=== PATIENT | female | born 1965 | race Caucasian/White ===

== ENCOUNTER 2016-12-23 14:40 | Emergency (ER) | payer BC ==
[2016-12-23 15:00] VITALS: BP 166/88; BMI 27.8
--- NOTE | 2016-12-23 15:44 | DR.GENAD ---
HPI - PCP Primary Care Physician: NFD - Complaint/Symptoms Chief Complaint:: PT C/O URINARY FREQUENCY AND ABD PAIN. PT STATES THESE SYMPTOMS STARTED X4 DAYS AGO. - Source History Provided: Patient - Mode of Arrival Mode of Arrival: Ambulatory - Timing Onset of Chief Complaint: 12/19/16 PMH - PMH Past Medical History: Yes Past Medical History: Headaches, Hypertension, Kidney Stones Past Medical History Comment: ULCER COLITIS, MITRAL VALVE PROLAPSE Past Surgical History: Yes Surgical History: , Hysterectomy, Lithotripsy - Family History History of Family Medical Conditions: No - Social History Does any household member use tobacco: No Alcohol Use: None Do you use any recreational Drugs:: No Lives With: Family Lives Where: Home - infectious screening In the last 2 months have you had wt loss of >10#?: NO Have you had fever, night sweats or hemotysis?: No Have you traveled outside the country in the last 6 months?: No Isolation: Standard ROS - Review of Systems Constitutional: No Symptoms Reported Eyes: No Symptoms Reported ENTM: No Symptoms Reported Respiratoy: No Symptoms Reported Cardiovascular: No Symptoms Reported Gastrointestinal/Abdominal: No Symptoms Reported Genitourinary: Dysuria Neurological: No Symptoms Reported Musculoskeletal: No Symptoms Reported Integumentary: No Symptoms Reported Hematologic/Lymphatic: No Symptoms Reported Endocrine: No Symptoms Reported Psychiatric: No Symptoms Reported All Other Systems: Reviewed and Negative PE - Vital Signs Vitals: Temperature 97.9 F Pulse Rate 77 Respiratory Rate 20 Blood Pressure 166/88 O2 Sat by Pulse Oximetry 95 - General Limitations: No Limitations General Appearance: Alert, In No Apparent Distress - Head Head Exam: Normal Inspection, Atraumatic - Eyes Eye exam: Normal Appearance, PERRL, EOMI - ENT ENT Exam: Normal Exam External Ear Exam: Normal External Inspection TM/Canal Exam: Bilateral Normal Nose Exam: Normal Nose Exam Mouth Exam: Normal Inspection Throat Exam: Normal Inspection - Neck Neck Exam: Normal Inspection - Chest Chest Inspection: Normal Inspection - Respiratory Respiratory Exam: Normal Lung Sounds Bilat Respiratory Exam: Bilateral Clear to Auscultation - Cardiovascular Cardiovascular Exam: Regular Rate, Normal Rhythm - Abdominal Exam Abdominal Exam: Normal Inspection, Normal Bowel Sounds, Soft, Tenderness Abdominal Tenderness: Suprapubic - Extremities Extremities Exam: Normal Inspection, Full ROM - Back Back Exam: Normal Inspection, Full ROM - Neurologic Neurological Exam: Alert, Oriented X3, CN II-XII Intact - Psychiatric Psychiatric Exam: Normal Affect - Skin Skin Exam: Warm, Dry, Intact ROR - Labs Reviewed Result Diagrams: 12/23/16 15:50 12/23/16 15:50 Laboratory: WBC 11.3 X10^3/uL (3.6-10.0) H 12/23/16 15:50 RBC 4.13 X10^6/uL (3.5-5.4) 12/23/16 15:50 Hgb 13.4 g/dL (12.0-16.0) 12/23/16 15:50 Hct 38.8 % (36.0-47.0) 12/23/16 15:50 MCV 93.9 fL (80.0-100.0) 12/23/16 15:50 MCH 32.4 pg (27.0-34.0) 12/23/16 15:50 MCHC 34.6 g/dL (33.0-35.0) 12/23/16 15:50 RDW 12.7 % (11.6-16.5) 12/23/16 15:50 Plt Count 299 X10^3/uL (150.0-450.0) 12/23/16 15:50 MPV 8.3 fL (7.4-11.0) 12/23/16 15:50 Neut % 71.0 % (42.0-75.0) 12/23/16 15:50 Lymph % 21.6 % (21.0-51.0) 12/23/16 15:50 [place] % 6.1 % (0.0-13.0) 12/23/16 15:50 Eos % 0.9 % (0.9-2.9) 12/23/16 15:50 Baso % 0.4 % (0.2-1.0) 12/23/16 15:50 Neut # 8.0 x10^3/uL (2.2-4.8) H 12/23/16 15:50 Lymph # 2.4 X10^3/uL (1.3-2.9) 12/23/16 15:50 [place] # 0.7 x10^3/uL (0.3-0.8) 12/23/16 15:50 Eos # 0.1 x10^3/uL (0.0-0.2) 12/23/16 15:50 Baso # 0.0 X10^3/uL (0.0-0.1) 12/23/16 15:50 Absolute Nucleated RBC 0.1 /100WBC 12/23/16 15:50 Sodium 142 mmol/L (136-145) 12/23/16 15:50 Corrected Sodium TNP 12/23/16 15:50 Potassium 3.8 mmol/L (3.5-5.1) 12/23/16 15:50 Chloride 103 mmol/L (98-107) 12/23/16 15:50 Carbon Dioxide 29.8 mmol/L (21-32) 12/23/16 15:50 BUN 9 mg/dL (7-18) 12/23/16 15:50 Creatinine 0.77 mg/dL (0.55-1.02) 12/23/16 15:50 Est GFR (MDRD) Af Amer > 60 (>60) 12/23/16 15:50 Est GFR (MDRD) Non-Af > 60 (>60) 12/23/16 15:50 Glucose 90 mg/dL (65-99) 12/23/16 15:50 Calcium 9.4 mg/dL (8.5-10.1) 12/23/16 15:50 Corrected Calcium TNP 12/23/16 15:50 Total Bilirubin 0.40 mg/dL (0.2-1.0) 12/23/16 15:50 AST 27 Units/L (15-37) 12/23/16 15:50 ALT 37 Units/L (12-78) 12/23/16 15:50 Alkaline Phosphatase 119 Units/L (46-116) H 12/23/16 15:50 C-Reactive Protein 15.00 mg/L (0-3.0) H 12/23/16 15:50 Total Protein 8.1 g/dL (6.4-8.2) 12/23/16 15:50 Albumin 4.0 g/dL (3.4-5.0) 12/23/16 15:50 Globulin 4.1 g/dL (2.5-4.5) 12/23/16 15:50 Albumin/Globulin Ratio 1.0 Ratio (1.1-2.1) L 12/23/16 15:50 Amylase 29 Units/L (25-115) 12/23/16 15:50 Lipase 125 Units/L (73-393) 12/23/16 15:50 Specimen Type Clean catch urine 12/23/16 15:38 Urine Color Yellow (YELLOW) 12/23/16 15:38 Urine Appearance Cloudy (CLEAR) 12/23/16 15:38 Urine pH 8.0 (5.0 - 8.0) 12/23/16 15:38 Ur Specific [place] 1.010 (1.000-1.030) 12/23/16 15:38 Urine Protein 3+ (NEGATIVE) 12/23/16 15:38 Urine Glucose (UA) Negative (NEGATIVE) 12/23/16 15:38 Urine Ketones Negative (NEGATIVE) 12/23/16 15:38 Urine Occult Blood 3+ (NEGATIVE) 12/23/16 15:38 Urine Nitrite Negative (NEGATIVE) 12/23/16 15:38 Urine Bilirubin Negative (NEGATIVE) 12/23/16 15:38 Urine Urobilinogen Normal (NORMAL) 12/23/16 15:38 Ur Leukocyte Esterase 3+ (NEGATIVE) 12/23/16 15:38 Urine RBC 10-15 /HPF (NEGATIVE) 12/23/16 15:38 Urine WBC Tntc /HPF (NEGATIVE) 12/23/16 15:38 Ur Squamous Epith Cells Moderate /HPF (NEGATIVE) 12/23/16 15:38 Urine Bacteria 1+ /HPF (NEGATIVE) 12/23/16 15:38 Ur Culture Indicated? Yes/culture set up 12/23/16 15:38 H. pylori IgG Antibody Negative (NEGATIVE) 12/23/16 15:50 - XRAY XRAY Interpreted by: Radiologist (CT Abd/Pelv: There is a 3mm calculus in the lower pole of the left kidney. There is no hydronephrosis. The right kidney shows a tiny punctate calculus in the lower pole. No evidence of hydronephrosis. ) - Diagnosis Discharge Problem: Renal calculus, bilateral UTI (urinary tract infection) Qualifiers: Urinary tract infection type: acute cystitis Hematuria presence: with hematuria Qualified Code(s): N30.01 - Acute cystitis with hematuria - Discharge Plan Condition: Stable - Follow ups/Referrals Follow ups/Referrals: NFD,None [Primary Care Provider] - 3 days - Instructions
[2016-12-23] MEDS ORDERED: MORPHINE SULFATE INJ 4 MG IVP ONE (15:52)
[2016-12-23] MEDS ORDERED: NS 1000 ML 1,000 ML ONE (15:55)
[2016-12-23] MEDS ORDERED: MORPHINE SULFATE INJ 4 MG ONE (15:56)
[2016-12-23] MEDS ORDERED: NS 1000 ML 1,000 ML IV SCH (16:00)
[2016-12-23 16:09] LABS: BILIRUBIN,URINE NEGATIVE (NEGATIVE); BLOOD/HEMOGLOBIN,URINE 3+ (NEGATIVE); GLUCOSE, URINE NEGATIVE (NEGATIVE); KETONES,URINE NEGATIVE (NEGATIVE); LEUKOCYTE ESTERASE ,URINE 3+ (NEGATIVE); NITRITES,URINE NEGATIVE (NEGATIVE); PROTEIN,URINE 3+ (NEGATIVE); UROBILINOGEN,URINE NORMAL (NORMAL)
[2016-12-23 16:14] LABS: AMYLASE 29 Units/L (25-115); LIPASE 125 Units/L (73-393)
[2016-12-23 16:15] LABS: APPEARANCE,URINE CLOUDY (CLEAR); BACTERIA,URINE 1+ /HPF (NEGATIVE); COLOR,URINE YELLOW (YELLOW); SQUAMOUS EPITHELIAL CELL,UR MODERATE /HPF (NEGATIVE)
[2016-12-23 16:18] LABS: BASOPHILS % (AUTO) 0.4 % (0.2-1.0); EOSINOPHILS # (AUTO) 0.1 x10^3/uL (0.0-0.2); EOSINOPHILS % (AUTO) 0.9 % (0.9-2.9); HEMATOCRIT 38.8 % (36.0-47.0); HEMOGLOBIN 13.4 g/dL (12.0-16.0); LYMPHOCYTES # (AUTO) 2.4 X10^3/uL (1.3-2.9); LYMPHOCYTES % (AUTO) 21.6 % (21.0-51.0); MEAN CORPUSCULAR HEMOGLOBIN 32.4 pg (27.0-34.0); MEAN CORPUSCULAR HGB CONC 34.6 g/dL (33.0-35.0); MEAN CORPUSCULAR VOLUME 93.9 fL (80.0-100.0); MEAN PLATELET VOLUME 8.3 fL (7.4-11.0); MONOCYTES # (AUTO) 0.7 x10^3/uL (0.3-0.8); MONOCYTES % (AUTO) 6.1 % (0.0-13.0); PLATELET COUNT 299 X10^3/uL (150.0-450.0); RED BLOOD COUNT 4.13 X10^6/uL (3.5-5.4); RED CELL DISTRIBUTION WIDTH 12.7 % (11.6-16.5); WHITE BLOOD COUNT 11.3 X10^3/uL (3.6-10.0)
[2016-12-23 16:19] LABS: ALANINE AMINOTRANSFERASE 37 Units/L (12-78); ALKALINE PHOSPHATASE 119 Units/L (46-116); ASPARTATE AMINO TRANSFERASE 27 Units/L (15-37); BLOOD UREA NITROGEN 9 mg/dL (7-18); CALCIUM 9.4 mg/dL (8.5-10.1); CARBON DIOXIDE 29.8 mmol/L (21-32); CHLORIDE 103 mmol/L (98-107); CREATININE 0.77 mg/dL (0.55-1.02); GLUCOSE 90 mg/dL (65-99); SODIUM 142 mmol/L (136-145); TOTAL PROTEIN 8.1 g/dL (6.4-8.2); eGFR BLACK RACES > 60 (>60); eGFR NON BLACK RACES > 60 (>60)
--- NOTE | 2016-12-23 17:37 | CT ---
HISTORY: Left flank pain and hematuria Study: CT abdomen and pelvis without contrast Comparison: May 2015 Technique: Multiple axial images of the abdomen and pelvis were obtained from the lung bases to the pubic symph ysis without the administration of IV contrast. Sagittal and coronal reformations were provided. Findings: The visualized portions of the lung bases are unremarkable. There is a 3 millimeter calculus in the lower pole of the left kidney. There is no hydronephrosis. The right kidney shows a tiny punctate c alculus in the lower pole. The liver and spleen and pancreas and adrenal glands are unremarkable.. T he gallbladder is unremarkable in its CT appearance. No significant mesenteric lymphadenopathy or s tranding can be observed. No free fluid or free air is seen within the abdomen. The uterus is surg ically absent. I cannot identify the appendix with certainty. There is no abnormal adnexal mass. No bowel wall thickening or bowel dilatation is present. The colon is unremarkable. Specifically, the re is no diverticulosis noted within the sigmoid colon. The urinary bladder is grossly unremarkable. The bony structures are grossly intact. IMPRESSION: 1. Bilateral lower pole renal calculi, no evidence for hydronephrosis. Reported By:
== END 2016-12-23 18:15 | disposition home or self-care (01) ==
LOC: ER 15:06
DX: N20.0 Calculus of kidney (principal); N30.01 Acute cystitis with hematuria; B96.29 Other Escherichia coli [E. coli] as the cause of diseases classified elsewhere; R10.84 Generalized abdominal pain
CPT/HCPCS: 36415; 74176; 80053; 81001; 82150; 83690; 85025; 86140; 86677; 87086; 87088; 87186; 96365; 96367; 96374; 99283; A4222; J2270

== ENCOUNTER 2025-04-05 22:04 | Observation (INO) ==
[2025-04-05 23:26] LABS: BLOOD/HEMOGLOBIN,URINE NEGATIVE (NEGATIVE); LEUKOCYTE ESTERASE ,URINE 3+ (NEGATIVE); NITRITES,URINE NEGATIVE (NEGATIVE)
[2025-04-05 23:32] LABS: APPEARANCE,URINE CLEAR (CLEAR)
[2025-04-05 23:33] LABS: SQUAMOUS EPITHELIAL CELL,UR FEW /HPF (NEGATIVE)
--- NOTE | 2025-04-05 23:58 | CT ---
EXAM: ABDOMEN/PELVIS W/O CON HISTORY: abdominal pain; Pt states that she has had cough and congestion since last Monday. Pt states that when she coughs she gets short of breath. Pt states that the cough is non-productive and is painful COMPARISON: None. TECHNIQUE: CT of the abdomen and pelvis without contrast FINDINGS: The lung bases are clear. The abdominal aorta tapers normally. Sensitivity is reduced without intravenous contrast. Small pericardial effusion is visible. No liver mass. Clips from prior cholecystectomy. Normal adrenal glands. Normal right kidney. Right ureter tapers normally. Left nephrolithiasis spanning 3 mm. The left ureter tapers normally. Normal spleen. The pancreas is noninflamed. The stomach is not obstructed. No pelvic free fluid. Small fatty umbilical hernia. No free air. Distended colon loops involving the ascending and transverse colon. No sign of appendicitis. No pelvic free fluid. The small bowel is not obstructed. No free air. Degenerative changes of the spine. IMPRESSION: Colonic ileus versus partial colonic obstruction. No sign of abscess or perforation. Nonobstructing left nephrolithiasis. All CT scans at this facility use dose modulation, iterative reconstruction, and/or weight based dosing when appropriate to reduce radiation dose to as low as reasonably achievable. THIS IS AN ELECTRONICALLY VERIFIED FINAL REPORT 04/05/2025 11:55 PM - Electronically signed by Devaughn Garcia MD
--- NOTE | 2025-04-06 00:09 | ED.ABDFE ---
HPI Time Seen Time Seen by Provider: 04/06/25 00:07 PCP Primary Care Physician: HPI Comment HPI Comment: abdominal pain started by not feeling well 4 days ago .it began with nausea and vomiting followed by crampy abdominal pain moderate intensity associated with non- bloody watery diarrhea. Symptoms worsened. Here to have it checked. Took tums and gas-x did not help. No one at home with similar symptoms. Not eaten anything unusual or different. Has not been eating and drinking since then symptoms began. No recent changes in medication Complaint Doctors Chief Complaint Comments: abdominal pain Chief Complaint:: pt ambulatory to the er she stated she has been sick since . she stated on monday she started running temp and today she has been feeling weak and having some upper left abdominal pain, diarrhea, nausea and vomiting. Self Treatment fo Chief Complaint: tums and gas pills about three hours ago. COVID-19 Coronavirus risk:travel/contact w/high risk person: No Has patient experienced Coronavirus symptoms: Yes Coronavirus symptoms experienced: Fever Reviewed Nurses Notes Review: Yes Source History Provided: Patient Mode of arrival Mode of Arrival: Ambulatory Timing Onset of Chief Complaint: 04/03/25 PMH PMH Past Medical History: Yes Past Medical History: Migraines, Hypertension and Kidney Stones Past Surgical History: Yes Surgical History: , Cholecystectomy, Hysterectomy, Lithotripsy and Other Family History History of Family Medical Conditions: Yes Family Medical History: Hypertension Social History Do you use any recreational Drugs:: No Travel Risk Coronavirus risk:travel/contact w/high risk person: No Has patient experienced Coronavirus symptoms: Yes Coronavirus symptoms experienced: Fever Infectious screening Have you traveled outside the country in the last 6 months?: No Isolation: Standard ROS Review of Systems Constitutional: Fever, Malaise and Loss of Appetite Eyes: No Symptoms Reported ENTM: No Symptoms Reported Respiratoy: No Symptoms Reported Cardiovascular: No Symptoms Reported Gastrointestinal/Abdominal: Abdominal Pain, Diarrhea, Nausea and Vomiting Genitourinary: No Symptoms Reported Neurological: No Symptoms Reported Musculoskeletal: No Symptoms Reported Integumentary: No Symptoms Reported Hematologic/Lymphatic: No Symptoms Reported Endocrine: No Symptoms Reported Psychiatric: No Symptoms Reported PE Vital Signs Vitals: Vital Signs Temperature 98.0 F Temperature 98.0 F Pulse Rate [Right Radial] 87 Pulse Rate 86 Respiratory Rate 18 Respiratory Rate 20 Blood Pressure [Left Arm] 125/66 Blood Pressure 177/84 O2 Sat by Pulse Oximetry 98 O2 Sat by Pulse Oximetry 96 General Limitations: No Limitations General Appearance: Alert, Anxious and In Distress Head Head Exam: Normal Inspection, Atraumatic and Normocephalic Eyes Eye exam: Normal Appearance, PERRL and EOMI ENT ENT Exam: Mucous Membranes Dry Neck Neck Exam: Normal Inspection, Full ROM and Trachea Midline Chest Chest Inspection: Normal Inspection and Symmetric Chest Wall Rise Respiratory Respiratory Exam: Normal Lung Sounds Bilat Respiratory Exam: Bilateral: Clear to Auscultation Cardiovascular Cardiovascular Exam: +S1 and +S2 Abdominal Exam Abdominal Exam: Normal Inspection, Tenderness and Hypoactive Bowel Sounds Abdominal Tenderness: LUQ, LLQ and Moderate Back Back Exam: Normal Inspection Extremeties Extremities Exam: Normal Inspection Neurologic Neurological Exam: Alert, CN II-XII Intact, Normal Gait and Reflexes Normal Skin Skin Exam: Normal Color MDM Differential Diagnosis Differential Diagnosis- Considerations may include:: Constipation Other differential diagnosis: abdominal pin ileus ,bowel obstruction gastroneteritis COURSE Treatment Treatment: labs ,ct abdomen/plevis IV fluids ROR Labs Reviewed Laboratory Results Reviewed?: Yes 04/06/25 00:24 04/06/25 00:24 Laboratory: WBC 10.7 X10^3/uL (3.6-10.0) H 04/06/25 00:24 RBC 4.38 X10^6/uL (3.5-5.4) 04/06/25 00:24 Hgb 13.3 g/dL (12.0-16.0) 04/06/25 00:24 Hct 39.1 % (36.0-47.0) 04/06/25 00:24 MCV 89.2 fL (80.0-100.0) 04/06/25 00:24 MCH 30.4 pg (27.0-34.0) 04/06/25 00:24 MCHC 34.0 g/dL (33.0-35.0) 04/06/25 00:24 RDW 14.1 % (11.6-16.5) 04/06/25 00:24 Plt Count 342 X10^3/uL (150.0-450.0) 04/06/25 00:24 MPV 8.7 fL (7.4-11.0) 04/06/25 00:24 Neut % (Auto) 75.8 % (42.0-75.0) H 04/06/25 00:24 Lymph % (Auto) 16.0 % (21.0-51.0) L 04/06/25 00:24 [place] % (Auto) 6.7 % (0.0-13.0) 04/06/25 00:24 Eos % (Auto) 1.3 % (0.9-2.9) 04/06/25 00:24 Baso % (Auto) 0.2 % (0.2-1.0) 04/06/25 00:24 Neut # (Auto) 8.1 x10^3/uL (2.2-4.8) H 04/06/25 00:24 Lymph # (Auto) 1.7 X10^3/uL (1.3-2.9) 04/06/25 00:24 [place] # (Auto) 0.7 x10^3/uL (0.3-0.8) 04/06/25 00:24 Eos # (Auto) 0.1 x10^3/uL (0.0-0.2) 04/06/25 00:24 Baso # (Auto) 0.0 X10^3/uL (0.0-0.1) 04/06/25 00:24 Absolute Nucleated RBC 0.1 /100WBC 04/06/25 00:24 Sodium 142 mmol/L (136-145) 04/06/25 00:24 Corrected Sodium TNP 04/06/25 00:24 Potassium 3.2 mmol/L (3.5-5.1) L 04/06/25 00:24 Chloride 104 mmol/L (98-107) 04/06/25 00:24 Carbon Dioxide 27.4 mmol/L (21-32) 04/06/25 00:24 BUN 10 mg/dL (7-18) 04/06/25 00:24 Creatinine 0.77 mg/dL (0.55-1.02) 04/06/25 00:24 Est GFR (MDRD) Af Amer > 60 (>60) 04/06/25 00:24 Est GFR (MDRD) Non-Af > 60 (>60) 04/06/25 00:24 Glucose 98 mg/dL (65-99) 04/06/25 00:24 Lactic Acid 0.8 mmol/L (0.4-2.0) 04/06/25 00:24 Calcium 9.2 mg/dL (8.5-10.1) 04/06/25 00:24 Corrected Calcium TNP 04/06/25 00:24 Total Bilirubin 0.30 mg/dL (0.2-1.0) 04/06/25 00:24 AST 54 Units/L (15-37) H 04/06/25 00:24 ALT 77 Units/L (12-78) 04/06/25 00:24 Alkaline Phosphatase 187 Units/L (46-116) H 04/06/25 00:24 Total Protein 8.4 g/dL (6.4-8.2) H 04/06/25 00:24 Albumin 4.1 g/dL (3.4-5.0) 04/06/25 00:24 Globulin 4.3 g/dL (2.5-4.5) 04/06/25 00:24 Albumin/Globulin Ratio 1.0 Ratio (1.1-2.1) L 04/06/25 00:24 Lipase 29 Units/L (16-77) 04/06/25 00:24 Specimen Type Clean catch urine 04/05/25 23:12 Urine Color Pale yellow (YELLOW) 04/05/25 23:12 Urine Appearance Clear (CLEAR) 04/05/25 23:12 Urine pH 7.0 (5.0 - 8.0) 04/05/25 23:12 Ur Specific [place] 1.010 (1.000-1.030) 04/05/25 23:12 Urine Protein 1+ (NEGATIVE) 04/05/25 23:12 Urine Glucose (UA) Negative (NEGATIVE) 04/05/25 23:12 Urine Ketones Negative (NEGATIVE) 04/05/25 23:12 Urine Blood Negative (NEGATIVE) 04/05/25 23:12 Urine Nitrite Negative (NEGATIVE) 04/05/25 23:12 Urine Bilirubin Negative (NEGATIVE) 04/05/25 23:12 Urine Urobilinogen Normal (NORMAL) 04/05/25 23:12 Ur Leukocyte Esterase 3+ (NEGATIVE) 04/05/25 23:12 Urine RBC None seen /HPF (0-3) 04/05/25 23:12 Urine WBC 5-10 /HPF (0-5) A 04/05/25 23:12 Ur Squamous Epith Cells Few /HPF (NEGATIVE) 04/05/25 23:12 Urine Bacteria Negative /HPF (NEGATIVE) 04/05/25 23:12 Ur Culture Indicated? No/not indicated 04/05/25 23:12 SARS-CoV-2 (PCR) Negative (NEGATIVE) 04/05/25 23:47 Influenza Type A (PCR) Negative (NEGATIVE) 04/05/25 23:47 Influenza Type B (PCR) Negative (NEGATIVE) 04/05/25 23:47 RSV (PCR) Negative (NEGATIVE) 04/05/25 23:47 Opioid Opioid Risk Tool Age (Charanjit box if 16-45): No History of Preadolescent Sexual Abuse: No Total: 0 Total Score Risk Category: Low Risk Copyright: Espinoza PAZ predicting aberrant behaviors Discharge Plan Diagnosis Discharge Problem: Partial obstruction of colon, Leukocytosis, Hypokalemia Discharge Plan Patient Disposition: 09 ADMITTED INPATIENT Condition: Stable Prescriptions: No Action prednisolone sodium phosphate 15 mg/5 mL (3 mg/mL) solution PO metoprolol succinate 200 mg tablet extended release 24 hr 200 mg PO QDAY nifedipine 60 mg tablet extended release 24hr 60 mg PO QDAY paroxetine HCl 20 mg tablet 20 mg PO QDAY montelukast 10 mg tablet 10 mg PO QDAY [id number] 2-30-10 mg/5 mL syrup PO olmesartan 40 mg tablet 40 mg PO QDAY ezetimibe 10 mg tablet 10 mg PO QDAY bupropion HCl 300 mg tablet extended release 24 hr 300 mg PO QDAY pregabalin 100 mg capsule 100 mg PO TID lubiprostone 24 mcg capsule 24 mcg PO BID Repatha SureClick 140 mg/mL pen injector 140 mg SUBCUT Q2W Patient Comments: [NO ORIGINAL SIG] Nurtec ODT 75 mg tablet,disintegrating 75 mg PO DAILY PRN Qulipta 60 mg tablet 60 mg PO QDAY Zepbound 12.5 mg/0.5 mL pen injector 12.5 mg SUBCUT QWEEK Patient Comments: [NO ORIGINAL SIG] Health Concerns: Post Hospitalization: new medications and changes needed to prevent readmission or further decline. Pt educated and given instructions on all concerns. Plan of Treatment: Continue with present treatment and follow up plan. Pt is to keep follow up appointment as instructed and take medications as ordered. Orders to Discharge Patient Discharge Orders: Transfer (Routine); Ordered 04/06/25 Ordered By: Avery Schafer Follow ups/Referrals Follow ups/Referrals: NFD,None [Primary Care Provider] - 3 days Instructions Stand Alone Forms: Find Help Web Site, Post Hospital Follow Up Care Print Language: GIBR[place] Provider Note Additional Notes patient labs ct scan discussed with Dr Grant .Pt has colonic ileus v partial colonic obstruction .Agreed to admit patient for IV fluids ,NPO and antibiotics
[2025-04-06 00:58] LABS: MEAN PLATELET VOLUME 8.7 fL (7.4-11.0); RED CELL DISTRIBUTION WIDTH 14.1 % (11.6-16.5)
[2025-04-06] MEDS: NS 1,000 ML IV 1,000 ML IV ONE (01:13)
[2025-04-06] MEDS: OFIRMEV IV 1000 MG VIAL 1,000 MG/100 ML VIAL IV ONE (01:28)
[2025-04-06 01:31] LABS: CREATININE 0.77 mg/dL (0.55-1.02); eGFR NON BLACK RACES > 60 (>60)
[2025-04-06] MEDS ORDERED: ZOSYN VIAL 3.375 GRAMS 3.375 G in NS 100 ML IV 100 ML IV SCH (02:25)
[2025-04-06 02:48] VITALS: BMI 30.7
[2025-04-06] MEDS: K-DUR TAB 20 MEQ PO SCH (03:05)
[2025-04-06] MEDS: NS 1,000 ML IV 1,000 ML IV SCH (03:13)
[2025-04-06] MEDS: ZOSYN VIAL 3.375 GRAMS 3.375 G in NS 100 ML IV 100 ML IV SCH (03:14)
[2025-04-06] MEDS: K-RIDER 10 MEQ/100 ML WATER 10 MEQ/100 ML BAG IV SCH (03:42)
[2025-04-06] MEDS: MORPHINE SULFATE INJ 2 MG INJ IVP PRN (03:43)
[2025-04-06] MEDS: NS 250 ML IV 25 ML IV PRN (03:43)
[2025-04-06 05:43] LABS: MEAN PLATELET VOLUME 8.3 fL (7.4-11.0); RED CELL DISTRIBUTION WIDTH 14.1 % (11.6-16.5)
[2025-04-06 05:58] LABS: CREATININE 0.68 mg/dL (0.55-1.02); eGFR NON BLACK RACES > 60 (>60)
[2025-04-06] MEDS ORDERED: CONSULT PHARMACY - POTASSIUM & MAGNESIUM XX SCH (08:00)
[2025-04-06] MEDS: WELLBUTRIN XL 300 MG (DAILY) PO SCH (10:09)
[2025-04-06] MEDS: BENICAR PO SCH (10:09)
[2025-04-06] MEDS: TOPROL XL PO SCH (10:11)
[2025-04-06] MEDS: PAXIL PO SCH (10:12)
[2025-04-06] MEDS: TOPROL XL PO ONE (11:03)
--- NOTE | 2025-04-07 00:08 | DR.H&P ---
H&P History & Physical for Day of: H&P Date: 04/06/25 Chief Complaint Chief Complaint: Abdominal pain and watery diarrhea History of Present Illness History of Present Illness: 60-year-old female with 4-day history of abdominal pain which has gotten worse with nonbloody watery diarrhea. Evaluated in the emergency room and CT scan consistent with possible colonic ileus versus obstruction of the descending colon. Overall colon was not specifically or significantly dilated. Since admission patient is already feeling better. Past Medical History Past Medical History: Anxiety, Dyslipidemia, Migraines, Hypertension and Kidney Stones Additional Medical History: Chronic constipation Past Surgical History Surgical History: , Cholecystectomy, Hysterectomy, Ortho Surgery and Lithotripsy Family History Family Medical History: Coronary Artery Disease and Hypertension Social History Does patient currently use any type of tobacco product: No Type of Tobacco Use: None Does any household member use tobacco: No Alcohol Use: None Drug Use: None Medications Home Medications: Home Medications Medication Instructions Recorded Confirmed Type atogepant 60 mg tablet (Qulipta) 60 mg PO QDAY 5 04/06/25 History bupropion HCl 300 mg 24 hr tablet, 300 mg PO QDAY 03/0904/06/25 History extended release evolocumab 140 mg/mL subcutaneous 140 mg subcut Q2W 04/06/25 History pen injector (Jb Stevens) ezetimibe 10 mg tablet 10 mg PO QDAY 04/06/2504/06 History lubiprostone 24 mcg capsule 24 mcg PO BID 04/06/25 History metoprolol succinate 200 mg 200 mg PO QDAY 04/06/25 History tablet,extended release 24 hr montelukast 10 mg tablet 10 mg PO QDAY 04/06/2504/06 History nifedipine 60 mg tablet,extended 60 mg PO QDAY 04/06/25 History release 24 hr olmesartan 40 mg tablet 40 mg PO QDAY 04/06/2504/06 History paroxetine HCl 20 mg tablet 20 mg PO QDAY 04/06/25 History pregabalin 100 mg capsule 100 mg PO TID 04/06/2504/06 History rimegepant 75 mg disintegrating 75 mg PO DAILY PRN 04/06/25 History tablet (Nurtec ODT) tirzepatide (weight loss) 12.5 12.5 mg subcut QWEEK 04/06/25 History mg/0.5 mL subcutaneous pen injector (Zepbound) Allergies Allergies Allergy/AdvReac Type Severity Reaction Status Date / Time No Known Drug Allergies Allergy Verified 06/21/23 13:56 Labs 04/06/25 05:21 04/06/25 05:21 Labs: Laboratory WBC 5.8 X10^3/uL (3.6-10.0) 04/06/25 05:21 RBC 4.13 X10^6/uL (3.5-5.4) 04/06/25 05:21 Hgb 12.5 g/dL (12.0-16.0) 04/06/25 05:21 Hct 36.6 % (36.0-47.0) 04/06/25 05:21 MCV 88.6 fL (80.0-100.0) 04/06/25 05:21 MCH 30.3 pg (27.0-34.0) 04/06/25 05:21 MCHC 34.2 g/dL (33.0-35.0) 04/06/25 05:21 RDW 14.1 % (11.6-16.5) 04/06/25 05:21 Plt Count 294 X10^3/uL (150.0-450.0) 04/06/25 05:21 MPV 8.3 fL (7.4-11.0) 04/06/25 05:21 Neut % (Auto) 58.1 % (42.0-75.0) 04/06/25 05:21 Lymph % (Auto) 29.3 % (21.0-51.0) 04/06/25 05:21 [place] % (Auto) 10.7 % (0.0-13.0) 04/06/25 05:21 Eos % (Auto) 1.6 % (0.9-2.9) 04/06/25 05:21 Baso % (Auto) 0.3 % (0.2-1.0) 04/06/25 05:21 Neut # (Auto) 3.4 x10^3/uL (2.2-4.8) 04/06/25 05:21 Lymph # (Auto) 1.7 X10^3/uL (1.3-2.9) 04/06/25 05:21 [place] # (Auto) 0.6 x10^3/uL (0.3-0.8) 04/06/25 05:21 Eos # (Auto) 0.1 x10^3/uL (0.0-0.2) 04/06/25 05:21 Baso # (Auto) 0.0 X10^3/uL (0.0-0.1) 04/06/25 05:21 Absolute Nucleated RBC 0.2 /100WBC 04/06/25 05:21 Sodium 143 mmol/L (136-145) 04/06/25 05:21 Corrected Sodium TNP 04/06/25 05:21 Potassium 3.4 mmol/L (3.5-5.1) L 04/06/25 05:21 Chloride 107 mmol/L (98-107) 04/06/25 05:21 Carbon Dioxide 25.0 mmol/L (21-32) 04/06/25 05:21 BUN 7 mg/dL (7-18) 04/06/25 05:21 Creatinine 0.68 mg/dL (0.55-1.02) 04/06/25 05:21 Est GFR (MDRD) Af Amer > 60 (>60) 04/06/25 05:21 Est GFR (MDRD) Non-Af > 60 (>60) 04/06/25 05:21 Glucose 89 mg/dL (65-99) 04/06/25 05:21 Lactic Acid 0.8 mmol/L (0.4-2.0) 04/06/25 00:24 Calcium 8.4 mg/dL (8.5-10.1) L 04/06/25 05:21 Corrected Calcium TNP 04/06/25 05:21 Magnesium 2.1 mg/dL (2.0-2.9) 04/06/25 05:21 Total Bilirubin 0.40 mg/dL (0.2-1.0) 04/06/25 05:21 AST 143 Units/L (15-37) H 04/06/25 05:21 ALT 110 Units/L (12-78) H 04/06/25 05:21 Alkaline Phosphatase 287 Units/L (46-116) H 04/06/25 05:21 Total Protein 7.4 g/dL (6.4-8.2) 04/06/25 05:21 Albumin 3.7 g/dL (3.4-5.0) 04/06/25 05:21 Globulin 3.7 g/dL (2.5-4.5) 04/06/25 05:21 Albumin/Globulin Ratio 1.0 Ratio (1.1-2.1) L 04/06/25 05:21 Lipase 29 Units/L (16-77) 04/06/25 00:24 Specimen Type Clean catch urine 04/05/25 23:12 Urine Color Pale yellow (YELLOW) 04/05/25 23:12 Urine Appearance Clear (CLEAR) 04/05/25 23:12 Urine pH 7.0 (5.0 - 8.0) 04/05/25 23:12 Ur Specific [place] 1.010 (1.000-1.030) 04/05/25 23:12 Urine Protein 1+ (NEGATIVE) 04/05/25 23:12 Urine Glucose (UA) Negative (NEGATIVE) 04/05/25 23:12 Urine Ketones Negative (NEGATIVE) 04/05/25 23:12 Urine Blood Negative (NEGATIVE) 04/05/25 23:12 Urine Nitrite Negative (NEGATIVE) 04/05/25 23:12 Urine Bilirubin Negative (NEGATIVE) 04/05/25 23:12 Urine Urobilinogen Normal (NORMAL) 04/05/25 23:12 Ur Leukocyte Esterase 3+ (NEGATIVE) 04/05/25 23:12 Urine RBC None seen /HPF (0-3) 04/05/25 23:12 Urine WBC 5-10 /HPF (0-5) A 04/05/25 23:12 Ur Squamous Epith Cells Few /HPF (NEGATIVE) 04/05/25 23:12 Urine Bacteria Negative /HPF (NEGATIVE) 04/05/25 23:12 Ur Culture Indicated? No/not indicated 04/05/25 23:12 SARS-CoV-2 (PCR) Negative (NEGATIVE) 04/05/25 23:47 Influenza Type A (PCR) Negative (NEGATIVE) 04/05/25 23:47 Influenza Type B (PCR) Negative (NEGATIVE) 04/05/25 23:47 RSV (PCR) Negative (NEGATIVE) 04/05/25 23:47 Review of Systems Constitutional: See HPI Eyes: No Symptoms Reported ENT: No Symptoms Reported Respiratory: No Symptoms Reported Cardiovascular: No Symptoms Reported Gastrointestinal: See HPI Genitourinary: See HPI Musculoskeletal: No Symptoms Reported Skin: No Symptoms Reported Neurological: No Symptoms Reported Physical Exam Vital Signs: Vital Signs Temperature 97.8 F Pulse Rate [Right Radial] 79 Respiratory Rate 18 Blood Pressure [Right Arm] 141/85 O2 Sat by Pulse Oximetry 98 Oriented: Normal, Time, Person and Place Eyes: Normal Ear: Normal Nose: Normal Throat: Normal Respiratory: Clear Throughout Cardiovascular: Normal : Normal Auscultation: Bowel Sounds: Normal Palpation: Other (Mildly tender in left lower quadrant no distention) Tenderness: LLQ (Mild, no rebound) Skin: Normal Musculoskeletal: Normal Psychiatric: Normal Mood Description: Calm Affect: Normal Speech Pattern: Clear and Appropriate Assessment/Plan (1) Partial obstruction of colon: Status: Acute Plan: Doubt this represents obstruction based on the history, physical exam and CT scan findings once actually read the CT scan. Will begin included with diet and observe. (2) Migraine without status migrainosus: Qualifiers: Intractability: intractable Migraine type: migraine (< 15 days per month) without aura Qualified Code(s): G43.019 - Migraine without aura, intractable, without status migrainosus Status: Acute Plan: Home medications (3) Hypertension: Status: Acute Plan: Home medications (4) Anxiety: Status: Acute (5) Chronic constipation: Status: Acute Plan: Home medications Review H&P Reviewed: Yes Patient was examined?: Yes
[2025-04-07 05:28] LABS: MEAN PLATELET VOLUME 8.1 fL (7.4-11.0); RED CELL DISTRIBUTION WIDTH 14.1 % (11.6-16.5)
[2025-04-07 05:37] LABS: COR CA(FOR HYPOALB) 8.5 mg/dL (8.5-10.1); CREATININE 0.61 mg/dL (0.55-1.02); eGFR NON BLACK RACES > 60 (>60)
[2025-04-07] MEDS ORDERED: CONSULT PHARMACY - POTASSIUM & MAGNESIUM XX SCH (06:00)
[2025-04-07] MEDS ORDERED: TOPROL XL PO ONE (08:12)
[2025-04-07] MEDS: K-DUR TAB 20 MEQ PO SCH (08:22)
[2025-04-07] MEDS: ZETIA TAB 10 MG PO SCH (09:05)
[2025-04-07 09:53] VITALS: RESP 19
[2025-04-07 13:06] VITALS: BP 147/77; PULSE 70; TEMP 97.8; O2SAT 96
[2025-04-07] MEDS ORDERED: SINGULAIR TAB 10 MG PO SCH (21:00)
--- NOTE | 2025-04-07 23:44 | W.DIS.FURT ---
Summary of Discharge Discharge Summary of Date Date of Exam: 04/07/25 Admission Date Date of Admission: 04/06/25 Admission Diagnosis Patient Problems (Updated 04/07/25 @ 23:40 by Franky Grant) Hypokalemia (Acute) E87.6 Leukocytosis (Acute) D72.829 Partial obstruction of colon (Acute) K56.600 Hospital Course: This is a 60-year-old female with history of hypertension, hypercholesterolemia chronic constipation and COPD who presented to the emergency room with 4-day history of abdominal pain with nausea vomiting and diarrhea. She was evaluated emergency room CT scan showed evidence of possible colonic ileus versus partial colonic obstruction. Patient has a history of chronic constipation and has a colonoscopy in the past. She was admitted and observed. Initially NPO. No further diarrhea after admission and she was on a clear good diet which continued to be symptom-free until she tried some pudding and then had some diarrhea. Most likely this is a viral illness. Patient given the option of continued observation versus being discharged home with a do not think she has a surgical problem. Elected to be discharged home I gave her my cell phone number should she have any changes. I do not think she needs antibiotics at this time by mouth. There is no evidence of colonic disease however I do think she will require colonoscopy in the very near future. She says that is being arranged at this time. Otherwise she will follow-up with me in 1 week. Vital Signs: Vital Signs (72 hours) 04/05/25 22:07 04/06/25 01:35 04/06/25 02:55 Temperature 98.0 F 98.0 F Pulse Rate 86 Pulse Rate [Right Radial] 87 Respiratory Rate 20 18 Blood Pressure 177/84 Blood Pressure [Left Arm] 125/66 Blood Pressure [Right Arm] O2 Sat by Pulse Oximetry 96 98 Oxygen Delivery Method Room Air Room Air Room Air 04/06/25 03:43 04/06/25 04:00 04/06/25 04:13 Temperature 97.7 F Pulse Rate Pulse Rate [Right Radial] 96 H Respiratory Rate 20 18 18 Blood Pressure Blood Pressure [Left Arm] Blood Pressure [Right Arm] 133/73 O2 Sat by Pulse Oximetry 97 Oxygen Delivery Method Room Air 04/06/25 07:58 04/06/25 10:30 04/06/25 11:59 Temperature 97.7 F 98.1 F Pulse Rate Pulse Rate [Right Radial] 84 80 Respiratory Rate 20 19 Blood Pressure Blood Pressure [Left Arm] Blood Pressure [Right Arm] 122/71 140/79 O2 Sat by Pulse Oximetry 96 97 Oxygen Delivery Method Room Air Room Air Room Air 04/06/25 16:00 04/06/25 19:00 04/06/25 20:00 Temperature 97.5 F L 97.8 F Pulse Rate Pulse Rate [Right Radial] 79 79 Respiratory Rate 18 18 Blood Pressure Blood Pressure [Left Arm] Blood Pressure [Right Arm] 132/83 141/85 O2 Sat by Pulse Oximetry 98 98 Oxygen Delivery Method Room Air Room Air Room Air 04/07/25 00:00 04/07/25 04:00 04/07/25 07:00 Temperature 98.0 F 97.7 F Pulse Rate Pulse Rate [Right Radial] 75 70 Respiratory Rate 18 18 Blood Pressure Blood Pressure [Left Arm] Blood Pressure [Right Arm] 133/75 155/86 O2 Sat by Pulse Oximetry 97 97 Oxygen Delivery Method Room Air Room Air Room Air 04/07/25 08:00 04/07/25 08:00 04/07/25 12:00 Temperature 97.5 F L 97.8 F Pulse Rate Pulse Rate [Right Radial] 72 70 Respiratory Rate 19 19 19 Blood Pressure Blood Pressure [Left Arm] Blood Pressure [Right Arm] 146/80 147/77 O2 Sat by Pulse Oximetry 97 96 Oxygen Delivery Method Room Air Room Air Labs: Laboratory Last Values WBC 4.5 X10^3/uL (3.6-10.0) 04/07/25 05:05 RBC 3.75 X10^6/uL (3.5-5.4) 04/07/25 05:05 Hgb 11.4 g/dL (12.0-16.0) L 04/07/25 05:05 Hct 33.2 % (36.0-47.0) L 04/07/25 05:05 MCV 88.6 fL (80.0-100.0) 04/07/25 05:05 MCH 30.4 pg (27.0-34.0) 04/07/25 05:05 MCHC 34.3 g/dL (33.0-35.0) 04/07/25 05:05 RDW 14.1 % (11.6-16.5) 04/07/25 05:05 Plt Count 276 X10^3/uL (150.0-450.0) 04/07/25 05:05 MPV 8.1 fL (7.4-11.0) 04/07/25 05:05 Neut % (Auto) 52.0 % (42.0-75.0) 04/07/25 05:05 Lymph % (Auto) 33.8 % (21.0-51.0) 04/07/25 05:05 [place] % (Auto) 10.6 % (0.0-13.0) 04/07/25 05:05 Eos % (Auto) 3.1 % (0.9-2.9) H 04/07/25 05:05 Baso % (Auto) 0.5 % (0.2-1.0) 04/07/25 05:05 Neut # (Auto) 2.3 x10^3/uL (2.2-4.8) 04/07/25 05:05 Lymph # (Auto) 1.5 X10^3/uL (1.3-2.9) 04/07/25 05:05 [place] # (Auto) 0.5 x10^3/uL (0.3-0.8) 04/07/25 05:05 Eos # (Auto) 0.1 x10^3/uL (0.0-0.2) 04/07/25 05:05 Baso # (Auto) 0.0 X10^3/uL (0.0-0.1) 04/07/25 05:05 Absolute Nucleated RBC 0.2 /100WBC 04/07/25 05:05 Sodium 144 mmol/L (136-145) 04/07/25 05:05 Corrected Sodium TNP 04/07/25 05:05 Potassium 3.1 mmol/L (3.5-5.1) L 04/07/25 05:05 Chloride 109 mmol/L (98-107) H 04/07/25 05:05 Carbon Dioxide 28.0 mmol/L (21-32) 04/07/25 05:05 BUN 2 mg/dL (7-18) L 04/07/25 05:05 Creatinine 0.61 mg/dL (0.55-1.02) 04/07/25 05:05 Est GFR (MDRD) Af Amer > 60 (>60) 04/07/25 05:05 Est GFR (MDRD) Non-Af > 60 (>60) 04/07/25 05:05 Glucose 88 mg/dL (65-99) 04/07/25 05:05 Lactic Acid 0.8 mmol/L (0.4-2.0) 04/06/25 00:24 Calcium 7.9 mg/dL (8.5-10.1) L 04/07/25 05:05 Corrected Calcium 8.5 mg/dL (8.5-10.1) 04/07/25 05:05 Magnesium 2.0 mg/dL (2.0-2.9) 04/07/25 05:05 Total Bilirubin 0.40 mg/dL (0.2-1.0) 04/07/25 05:05 AST 322 Units/L (15-37) H 04/07/25 05:05 ALT 354 Units/L (12-78) H 04/07/25 05:05 Alkaline Phosphatase 304 Units/L (46-116) H 04/07/25 05:05 Total Protein 6.4 g/dL (6.4-8.2) 04/07/25 05:05 Albumin 3.2 g/dL (3.4-5.0) L 04/07/25 05:05 Globulin 3.2 g/dL (2.5-4.5) 04/07/25 05:05 Albumin/Globulin Ratio 1.0 Ratio (1.1-2.1) L 04/07/25 05:05 Lipase 29 Units/L (16-77) 04/06/25 00:24 Specimen Type Clean catch urine 04/05/25 23:12 Urine Color Pale yellow (YELLOW) 04/05/25 23:12 Urine Appearance Clear (CLEAR) 04/05/25 23:12 Urine pH 7.0 (5.0 - 8.0) 04/05/25 23:12 Ur Specific [place] 1.010 (1.000-1.030) 04/05/25 23:12 Urine Protein 1+ (NEGATIVE) 04/05/25 23:12 Urine Glucose (UA) Negative (NEGATIVE) 04/05/25 23:12 Urine Ketones Negative (NEGATIVE) 04/05/25 23:12 Urine Blood Negative (NEGATIVE) 04/05/25 23:12 Urine Nitrite Negative (NEGATIVE) 04/05/25 23:12 Urine Bilirubin Negative (NEGATIVE) 04/05/25 23:12 Urine Urobilinogen Normal (NORMAL) 04/05/25 23:12 Ur Leukocyte Esterase 3+ (NEGATIVE) 04/05/25 23:12 Urine RBC None seen /HPF (0-3) 04/05/25 23:12 Urine WBC 5-10 /HPF (0-5) A 04/05/25 23:12 Ur Squamous Epith Cells Few /HPF (NEGATIVE) 04/05/25 23:12 Urine Bacteria Negative /HPF (NEGATIVE) 04/05/25 23:12 Ur Culture Indicated? No/not indicated 04/05/25 23:12 SARS-CoV-2 (PCR) Negative (NEGATIVE) 04/05/25 23:47 Influenza Type A (PCR) Negative (NEGATIVE) 04/05/25 23:47 Influenza Type B (PCR) Negative (NEGATIVE) 04/05/25 23:47 RSV (PCR) Negative (NEGATIVE) 04/05/25 23:47 Reason For Visit: PARTIAL COLONIC OBSTRUCTION/LEUKOCYTOSIS Discharge Date Discharge Date: 04/07/25 Discharge Diagnosis All Active Problems (Updated 04/07/25 @ 23:40 by Franky Grant) Diarrhea (Acute) Chronic constipation (Acute) Anxiety (Acute) Hypertension (Acute) Hypokalemia (Acute) Leukocytosis (Acute) Partial obstruction of colon (Acute) Acute costochondritis (Acute) Migraine without status migrainosus (Acute) Nausea (Acute) Hypertensive urgency (Acute) Chest wall pain (Acute) Acute rhinosinusitis (Acute) Pharyngitis, streptococcal (Acute) Left renal stone (Acute) Renal colic on left side (Acute) Calculus of left ureter (Acute) UTI (urinary tract infection) (Acute) Colitis due to Clostridium difficile (Acute) Renal calculus, bilateral (Acute) Calculus of right ureter (Acute) Acute right flank pain (Acute) Chest pain (Acute) Plan of Treatment: Continue with present treatment and follow up plan. Pt is to keep follow up ap pointment as instructed and take medications as ordered. Discharge Medications Discharge Medications: No Known Drug Allergies Allergy (Verified 06/21/23 13:56) CONTINUE taking the following medications atogepant 60 mg tablet (Qulipta) 60 mg PO QDAY 04/06/25 [History] bupropion HCl 300 mg 24 hr tablet, extended release 300 mg PO QDAY 04/06/25 [History] evolocumab 140 mg/mL subcutaneous pen injector (Repatha SureKingsleyick) 140 mg subcut Q2W 04/06/25 [History] ezetimibe 10 mg tablet 10 mg PO QDAY 04/06/25 [History] lubiprostone 24 mcg capsule 24 mcg PO BID 04/06/25 [History] metoprolol succinate 200 mg tablet,extended release 24 hr 200 mg PO QDAY 04/06/25 [History] montelukast 10 mg tablet 10 mg PO QDAY 04/06/25 [History] nifedipine 60 mg tablet,extended release 24 hr 60 mg PO QDAY 04/06/25 [History] olmesartan 40 mg tablet 40 mg PO QDAY 04/06/25 [History] paroxetine HCl 20 mg tablet 20 mg PO QDAY 04/06/25 [History] pregabalin 100 mg capsule 100 mg PO TID 04/06/25 [History] rimegepant 75 mg disintegrating tablet (Nurtec ODT) 75 mg PO DAILY PRN 04/06/25 [History] tirzepatide (weight loss) 12.5 mg/0.5 mL subcutaneous pen injector (Zepbound) 12.5 mg subcut QWEEK 04/06/25 [History] Discharge Disposition Assessment: See hospital course Discharge Plan Discharge Plan Hospital Course: This is a 60-year-old female with history of hypertension, hypercholesterolemia chronic constipation and COPD who presented to the emergency room with 4-day history of abdominal pain with nausea vomiting and diarrhea. She was evaluated emergency room CT scan showed evidence of possible colonic ileus versus partial colonic obstruction. Patient has a history of chronic constipation and has a colonoscopy in the past. She was admitted and observed. Initially NPO. No further diarrhea after admission and she was on a clear good diet which continued to be symptom-free until she tried some pudding and then had some diarrhea. Most likely this is a viral illness. Patient given the option of continued observation versus being discharged home with a do not think she has a surgical problem. Elected to be discharged home I gave her my cell phone number should she have any changes. I do not think she needs antibiotics at this time by mouth. There is no evidence of colonic disease however I do think she will require colonoscopy in the very near future. She says that is being arranged at this time. Otherwise she will follow-up with me in 1 week. Patient Disposition: 01 HOME, SELF-CARE Condition: Stable Health Concerns: Post Hospitalization: new medications and changes needed to prevent readmission or further decline. Pt educated and given instructions on all concerns. Plan of Treatment: Continue with present treatment and follow up plan. Pt is to keep follow up appointment as instructed and take medications as ordered. Assessment: See hospital course Prescription drug monitoring program results: PDMP was not reviewed Prescriptions: No Action metoprolol succinate 200 mg tablet extended release 24 hr 200 mg PO QDAY nifedipine 60 mg tablet extended release 24hr 60 mg PO QDAY paroxetine HCl 20 mg tablet 20 mg PO QDAY montelukast 10 mg tablet 10 mg PO QDAY olmesartan 40 mg tablet 40 mg PO QDAY ezetimibe 10 mg tablet 10 mg PO QDAY bupropion HCl 300 mg tablet extended release 24 hr 300 mg PO QDAY pregabalin 100 mg capsule 100 mg PO TID lubiprostone 24 mcg capsule 24 mcg PO BID Repatha SureClick 140 mg/mL pen injector 140 mg SUBCUT Q2W Patient Comments: [NO ORIGINAL SIG] Nurtec ODT 75 mg tablet,disintegrating 75 mg PO DAILY PRN Qulipta 60 mg tablet 60 mg PO QDAY Zepbound 12.5 mg/0.5 mL pen injector 12.5 mg SUBCUT QWEEK Patient Comments: [NO ORIGINAL SIG] Orders to Discharge Patient Discharge Orders: Discharge (Routine); Ordered 04/07/25 Ordered By: Franky Grant Follow ups/Referrals Follow ups/Referrals: [facility],None [Primary Care Provider] - 3 days Franky Grant [STAFF PHYSICIAN, Unknown] - 1 WEEK Instructions Instructions: Bowel Obstruction, [id number], Kidney Stones, [id number] Stand Alone Forms: Excuse From Work or School, Find Help Web Site, Post Hospital Follow Up Care Print Language: [place]
== END 2025-04-07 13:55 | disposition home or self-care (01) ==
LOC: MED/SURG 22:04 → ER 22:04 → MED/SURG 04-06 02:20
PROVIDERS: ADMIT Surgery; ATTEND Surgery
DX: K59.09 Other constipation; Z03.818 Encounter for observation for suspected exposure to other biological agents ruled out; E78.5 Hyperlipidemia, unspecified; K56.690 Other partial intestinal obstruction; F41.8 Other specified anxiety disorders; I10 Essential (primary) hypertension; R11.2 Nausea with vomiting, unspecified; N20.0 Calculus of kidney; R74.8 Abnormal levels of other serum enzymes; R74.01 Elevation of levels of liver transaminase levels; R10.84 Generalized abdominal pain; E83.42 Hypomagnesemia; E83.51 Hypocalcemia; J44.9 Chronic obstructive pulmonary disease, unspecified; G43.019 Migraine without aura, intractable, without status migrainosus; R19.7 Diarrhea, unspecified